=== PATIENT | male | born 1960 | race Caucasian/White ===

== ENCOUNTER 2017-09-15 14:44 | Emergency (ER) | payer OTHER ==
[2017-09-15 16:16] VITALS: BP 176/122
--- NOTE | 2017-09-15 16:54 | UC ---
Lower Extremity/Ankle HPI - HPI Summary HPI Summary: Pt presents with left leg swelling and redness that began yesterday. He tells me that he has a history of b/l leg swelling and uses daily compression stockings. Yesterday he took off his left stocking and forgot to put it back on. As the day went on, he noticed his left leg start to swell so he put the stocking on. Woke up this morning with increased swelling and redness of his left leg. He has been elevating his leg as much as possible since yesterday. Denies recent travel, hx of blood clots, SOB, chest pain, or recent injury. No pain. - History of Current Complaint Chief Complaint: UCLowerExtremity Stated Complaint: LEG SWELLING Time Seen by Provider: 09/15/17 16:54 Hx Obtained From: Patient Onset/Duration: Gradual Onset Pain Intensity: 0 Aggravating Factor(s): Standing, Ambulation Alleviating Factor(s): Elevation Able to Bear Weight: Yes - Allergies/Home Medications Allergies/Adverse Reactions: Allergies Allergy/AdvReac Type Severity Reaction Status Date / Time Sulfa (Sulfonamide Allergy Rash Verified 09/15/17 16:05 Antibiotics) Home Medications: Home Medications Ibuprofen TAB* [Advil TAB*] 800 mg PO Q6H PRN 09/15/17 [History Confirmed ] PMH/Surg Hx/FS Hx/Imm Hx Previously Healthy: Yes - Surgical History Surgical History: Yes Surgery Procedure, Year, and Place: sinus surgery 2005 - Family History Known Family History: Positive: Cardiac Disease, Hypertension - Social History Occupation: Employed Full-time Lives: Alone Alcohol Use: Daily Alcohol Amount: 2-3 drink/ day Substance Use Type: None Smoking Status (MU): Never Smoked Tobacco Review of Systems Constitutional: Negative Skin: Other - Redness and edema to left leg Respiratory: Negative Cardiovascular: Negative Gastrointestinal: Negative Motor: Negative Neurovascular: Negative Musculoskeletal: Negative Neurological: Negative Psychological: Negative All Other Systems Reviewed And Are Negative: Yes Physical Exam Triage Information Reviewed: Yes Appearance: Well-Appearing, No Pain Distress, Well-Nourished Vital Signs: Initial Vital Signs Temp 99.1 F 09/15/17 16:06 Pulse 98 09/15/17 16:06 Resp 14 09/15/17 16:06 BP 176/122 09/15/17 16:06 Pulse Ox 100 09/15/17 16:06 Vital Signs Reviewed: Yes Neck: Positive: Supple, Nontender, No Lymphadenopathy Respiratory: Positive: Lungs clear, Normal breath sounds, No respiratory distress, No accessory muscle use Cardiovascular: Positive: RRR, No Murmur, Pulses Normal - Left popliteal, TP, and DP., Brisk Capillary Refill - Left foot and toes Musculoskeletal: Positive: Strength Intact - Left LE, ROM Intact - Left LE, Other: - Negative Fidel's sign Left. No calf tenderness. Neurological: Positive: Alert, Other: - Sensations intact left LE. Psychological: Positive: Age Appropriate Behavior Skin: Positive: Other - 2+ edema left leg. Mild erythema extending from left patella down to toes. No skin breakdown, ulcerations, drainage, or masses/ nodules appreciated. Lower Extremity Course/Dx - Course Course Of Treatment: Left leg edema and erythema. I advised him to seek further evaluation in the ED for potential DVT. BP was 155/94 on manual recheck. - Differential Dx/Diagnosis Provider Diagnoses: Left leg edema. Left leg erythema Discharge - Discharge Plan Condition: Stable Disposition: HOME Patient Education Materials: Leg Edema (ED) Referrals: No Primary Care Phys,NOPCP [Primary Care Provider] - Additional Instructions: Your blood pressure was high at todays visit. Please see your primary provider within 4 weeks for recheck and re-evaluation. Please go to the [facility] ED for further evaluation of your left leg swelling.
== END 2017-09-15 17:15 | disposition home or self-care (01) ==
LOC: UCEAST 14:44
DX: R60.0 Localized edema (principal); L53.9 Erythematous condition, unspecified; Z88.2 Allergy status to sulfonamides
CPT/HCPCS: 99202; G0463

== ENCOUNTER 2017-09-16 09:01 | Emergency (ER) | payer OTHER ==
[2017-09-16 09:22] VITALS: BP 170/114
--- NOTE | 2017-09-16 10:09 | UC ---
Lower Extremity/Ankle HPI - HPI Summary HPI Summary: Pt presents with left lower leg pain and swelling. I saw pt yesterday for this same issue and I suspected he had a DVT - at that time I told him that we did not have ultrasound available and that he should seek further evaluation at the ER. He did not go to the ER and wanted to return this morning when Urgent Care did have ultrasound available. He kept his leg elevated all last night and took one aspirin. Still with swelling and pain. Leg appears less red today than yesterday. Denies fever, chills, SOB, chest pain, abdominal pain, n/v/d/c, headache, dizziness. - History of Current Complaint Chief Complaint: UCLowerExtremity Stated Complaint: RECHECK OF SWOLLEN LEG Time Seen by Provider: 09/16/17 09:59 Hx Obtained From: Patient Onset/Duration: Gradual Onset Severity Currently: None Pain Intensity: 0 Aggravating Factor(s): Standing, Ambulation Alleviating Factor(s): Rest, Elevation Able to Bear Weight: Yes - Allergies/Home Medications Allergies/Adverse Reactions: Allergies Allergy/AdvReac Type Severity Reaction Status Date / Time Sulfa (Sulfonamide Allergy Rash Verified 09/16/17 09:22 Antibiotics) PMH/Surg Hx/FS Hx/Imm Hx Previously Healthy: Yes - Surgical History Surgical History: Yes Surgery Procedure, Year, and Place: sinus surgery 2005 - Family History Known Family History: Positive: Cardiac Disease, Hypertension - Social History Occupation: Employed Full-time Lives: With Family Alcohol Use: Daily Alcohol Amount: 2-3 drink/ day Substance Use Type: None Smoking Status (MU): Never Smoked Tobacco - Immunization History Most Recent Tetanus Shot: unknown Review of Systems Constitutional: Negative Skin: Other - Redness and swelling to left leg Respiratory: Negative Cardiovascular: Negative Gastrointestinal: Negative Musculoskeletal: Negative Neurological: Negative Psychological: Negative All Other Systems Reviewed And Are Negative: Yes Physical Exam Triage Information Reviewed: Yes Appearance: Well-Appearing, No Pain Distress, Well-Nourished Vital Signs: Initial Vital Signs Temp 97.1 F 09/16/17 09:17 Pulse 107 09/16/17 09:17 Resp 20 09/16/17 09:17 BP 170/114 09/16/17 09:17 Pulse Ox 100 09/16/17 09:17 Vital Signs Reviewed: Yes Neck: Positive: Supple, Nontender, No Lymphadenopathy Respiratory: Positive: Lungs clear, Normal breath sounds, No respiratory distress, No accessory muscle use Cardiovascular: Positive: RRR, No Murmur, Brisk Capillary Refill - Left LE, Distal Pulses Weak - Left DP and TP Musculoskeletal: Positive: Strength Intact - Left LE, ROM Intact - Left LE, Edema @ - Left lower leg 3+ Neurological: Positive: Alert, Other: - Sensations intact left LE Psychological: Positive: Age Appropriate Behavior Skin: Positive: Other - Left lower leg 3+ edema. Diffuse erythema from distal thigh through foot. No skin breakdown, drainage, or palpable mass/nodule. Lower Extremity Course/Dx - Course Course Of Treatment: FINDINGS: There is occlusive deep venous thrombosis throughout the left lower extremity. involving the greater saphenous, common femoral, femoral, popliteal, peroneal, posterior. tibial veins. In addition there is occlusive thrombus within the common and external iliac. veins. The inferior vena cava appears patent. Pt was advised to go to the [facility] ED for further evaluation. He declined ambulance and elected to go by private vehicle. - Differential Dx/Diagnosis Provider Diagnoses: DVT left leg Discharge - Discharge Plan Condition: Stable Disposition: OTHER Discharge Disposition Comment: To [facility] by private car Patient Education Materials: Deep Vein Thrombosis (ED) Referrals: No Primary Care Phys,NOPCP [Primary Care Provider] - Additional Instructions: Please go to [facility] ED immediately. If you develop any shortness of breath or chest pain - please chute puller and call 911. Your blood pressure was high at todays visit. Please see your primary provider within 4 weeks for recheck and re-evaluation.
--- NOTE | 2017-09-16 10:40 | RAD ---
INDICATION: Left lower cavity swelling. COMPARISON: There are no prior studies available for comparison. TECHNIQUE: Multiple real-time, color flow and Doppler tracings of the left lower extremity were obtained. FINDINGS: There is occlusive deep venous thrombosis throughout the left lower extremity involving the greater saphenous, common femoral, femoral, popliteal, peroneal, posterior tibial veins. In addition there is occlusive thrombus within the common and external iliac veins. The inferior vena cava appears patent. The results of this exam were discussed with the referring clinician. IMPRESSION: EXTENSIVE OCCLUSIVE DEEP VENOUS THROMBOSIS THROUGHOUT THE LEFT LOWER EXTREMITY AND PELVIC VEINS ON THE LEFT SIDE.
== END 2017-09-16 10:40 ==
LOC: UCEAST 09:01
DX: I82.412 Acute embolism and thrombosis of left femoral vein (principal); I82.432 Acute embolism and thrombosis of left popliteal vein; I82.442 Acute embolism and thrombosis of left tibial vein; Z88.2 Allergy status to sulfonamides
CPT/HCPCS: 99212; G0463

== ENCOUNTER 2017-09-16 10:58 | Emergency (ER) | payer OTHER ==
--- NOTE | 2017-09-16 11:30 | ED ---
Lower Extremity - HPI Summary HPI Summary: 57 male presents to ED, sent over by urgent care, once diagnosed with DVT in left lower extremity. Patient states it has been red, warm, and swollen for the past few days and had it diagnosed on ultrasound prior to arrival at , due to extensiveness of DVT and need of treatment sent here. Denies any significant pain currently. Only when walking it causes him some pain. Denies any PMHx. No medications. No anticoagulants. Father had history of DVT. No chest pain or trouble breathing. No other complaints. No known trauma, injury or cause for DVT. No recent surgery, prolonged bed rest or recent travel. No cigarette use. Denies numbness/tingling, - History of Current Complaint Chief Complaint: EDExtremityLower Stated Complaint: POSSIBLE BLOOD CLOT LT LEG-CC TRANSFER Time Seen by Provider: 09/16/17 11:19 Hx Obtained From: Patient Mechanism Of Injury: Unknown Onset of Pain: Days Onset/Duration: Worse Since Severity Currently: None Pain Intensity: 0 Pain Scale Used: 0-10 Numeric Timing: Constant Location: Is Discrete @ - left lower extremity, calf Character Of Pain: Dull Associated Signs And Symptoms: Positive: Swelling, Redness Aggravating Factor(s): Ambulation Alleviating Factor(s): Rest, Nothing Able to Bear Weight: Yes Legs: 1 - red, warm swollen a/p - Allergies/Home Medications Allergies/Adverse Reactions: Allergies Allergy/AdvReac Type Severity Reaction Status Date / Time Sulfa (Sulfonamide Allergy Rash Verified 09/16/17 09:22 Antibiotics) PMH/Surg Hx/FS Hx/Imm Hx Endocrine/Hematology History: Denies: Hx Anticoagulant Therapy, Hx Diabetes Cardiovascular History: Denies: Hx Hypertension Respiratory History: Denies: Hx Asthma Musculoskeletal History: Reports: Other Musculoskeletal History - cervical stenosis - Surgical History Surgery Procedure, Year, and Place: sinus surgery 2005 - Immunization History Immunizations Up to Date: Yes Infectious Disease History: No Infectious Disease History: Denies: Traveled Outside the [place] in Last 30 Days - Family History Known Family History: Positive: Cardiac Disease, Hypertension - Social History Alcohol Use: Daily Alcohol Amount: 2-3 drink/ day Substance Use Type: Reports: None Smoking Status (MU): Never Smoked Tobacco Review of Systems Constitutional: Negative Cardiovascular: Negative Respiratory: Negative Gastrointestinal: Negative Positive: Arthralgia, Myalgia, Edema - left calf Positive: Other - redness left lower extremity Neurological: Negative All Other Systems Reviewed And Are Negative: Yes Physical Exam Triage Information Reviewed: Yes Vital Signs On Initial Exam: Initial Vitals Temp Pulse Resp BP Pulse Ox 98.2 F 105 18 157/109 97 09/16/17 11:00 09/16/17 11:00 09/16/17 11:00 09/16/17 11:00 09/16/17 11:00 Vital Signs Reviewed: Yes Appearance: Positive: Well-Appearing, No Pain Distress, Well-Nourished Skin: Positive: Warm, Skin Color Reflects Adequate Perfusion, Dry, Erythema @ - left lower extremity, knee and down. Negative: Cold, Numb, Cyanosis @ Head/Face: Positive: Temporal Artery Tenderness Eyes: Positive: Conjunctiva Clear ENT: Positive: Pharynx normal Neck: Positive: Supple, Nontender Respiratory/Lung Sounds: Positive: Clear to Auscultation, Breath Sounds Present. Negative: Rales, Rhonchi, Wheezes Cardiovascular: Positive: Normal, RRR, Pulses are Symmetrical in both Upper and Lower Extremities - 2+ pedal. Negative: Murmur, Rub Abdomen Description: Positive: Nontender, Soft Bowel Sounds: Positive: Present Musculoskeletal: Positive: Normal, Strength/ROM Intact, Pain @ - left lower extremity with movement, Edema Left - warm to touch, 41cm left, 38cm right. Negative: Limited @, Interruption @ Neurological: Positive: Normal, Sensory/Motor Intact, Alert, Oriented to Person Place, Time, CN Intact II-III, Reflexes Intact, NV Bundle Intact Distally, Normal Gait - with some pain to left lower extremity however is able Diagnostics - Vital Signs Vital Signs Temp Pulse Resp BP Pulse Ox 09/16/17 11:00 98.2 F 105 18 157/109 97 - Laboratory Result Diagrams: 09/16/17 13:40 09/16/17 13:40 Lab Statement: Any lab studies that have been ordered have been reviewed, and results considered in the medical decision making process. Lower Extremity Course/Dx - Course Course Of Treatment: ultrasound already obtained at showed:EXTENSIVE OCCLUSIVE DEEP VENOUS THROMBOSIS THROUGHOUT THE LEFT LOWER. EXTREMITY AND PELVIC VEINS ON THE LEFT SIDE. Due to extensivness spoke with Dr Valerio who stated start on lovenox and have follow up appointment with vasular surgeon. Labs obtained and showed elevated RBC, and thrombocytopenia. INR of 1.10. Slightly evelated BUN/Cr and alk phos. Spoke with Dr Valerio again about lab results who stated keep treatment plan of lovenox the same and have him follow up with him on Friday09/23/17 at [place] office. follow up with PCP on HTN evaluation and academic records specialist/blood work. Spoke with vascular surgery in [place] Dr [place] office at 2:00pm who stated patient can be seen 09/25/17 at 2:15pm. All files and images will be faxed/sent over to office as requested. Ok to discharge home - Diagnoses Differential Diagnosis/HQI/PQRI: Positive: DVT, Other - thrombocytopenia Provider Diagnoses: DVT (deep venous thrombosis), Thrombocytopenia - Physician Notifications Discussed Care Of Patient With: vascular surgery cny, Dr Valerio Time Discussed With Above Provider: 13:25 - and at 3:00pm Discharge - Discharge Plan Condition: Stable Disposition: HOME Prescriptions: Enoxaparin(*) [Lovenox(*)] 100 mg SUBCUT Q12HR #20 syringe Patient Education Materials: Enoxaparin (By injection), Deep Vein Thrombosis ( ED), Safe Use of Anticoagulants (ED) Referrals: [facility] [Outside] Jhon BALBUENA,Jhonathan Raza [Medical Doctor] - Liang Valerio MD [Medical Doctor] - Additional Instructions: Please take prescribed medication as directed for the next 10 days. Follow up with Dr Ferreira on September 25 at 2:15pm. Address and phone number above. You also have an appointment, you will get a phone call for, for close follow up on Saturday 09/[address] [place] [address] Valerio, tire repair mechanic. Do not take blood thinning/anticoagulant pain reliever medication such as Ibuprofen/Aspirin/Naproxen (also known as motrin, advil, aleve). Tylenol is safe to take for pain. Refrain from long periods of sitting and remember your risk for bleeding is increased while taking blood thinner. Any trauma or known injury please be evaluated for bleeding. Any new or worsening symptoms (chest pain, difficulty breathing, increased pain/ swelling) please seek medical attention promptly. Please follow up with PCP about elevated blood pressure within 2 weeks.
[2017-09-16] MEDS ORDERED: fentaNYL* 50 MCG/ML 2 ML VIAL (100 MCG VIAL) IV SLOW PU ONE (12:09)
[2017-09-16] MEDS ORDERED: Enoxaparin(*) 100 MG/ML SYR SUBCUT ONE (13:29)
[2017-09-16 13:52] LABS: Hematocrit 51 % (42-52); Hemoglobin 17.8 g/dl (14.0-18.0); Mean Corpuscular HGB Conc 35 g/dl (31-36); Mean Corpuscular Hemoglobin 31 pg (27-31); Mean Corpuscular Volume 90 fL (80-94); Mean Platelet Volume 9 um3 (7.4-10.4); Platelet Count 86 10^3/ul (150-450); Red Blood Count 5.69 10^6/ul (4.0-5.4); Red Cell Distribution Width 16 % (10.5-15); White Blood Count 10.5 10^3/ul (3.5-10.8)
[2017-09-16 14:00] LABS: INR 1.1 (0.77-1.02)
[2017-09-16 14:02] LABS: EGFR Non-African American 79.1 (>60)
[2017-09-16 14:22] LABS: ABS Basophils 0.1 10^3/ul (0-0.2); ABS Eosinophils 0.1 10^3/ul (0-0.6); ABS Lymphocytes 1.6 10^3/ul (1.0-4.8); ABS Monocytes 0.9 10^3/ul (0-0.8); ABS Neutrophils 7.8 10^3/ul (1.5-7.7); ABS Nucleated RBC 0 10^3/ul; Eosinophil % 1.4 % (0-6); Lymphocyte % 15.1 % (25-47); Nucleated Red Blood Cells % 0.3
[2017-09-16 15:22] VITALS: BP 132/84
== END 2017-09-16 15:20 | disposition home or self-care (01) ==
LOC: ED 10:58
DX: I82.4Z2 Acute embolism and thrombosis of unspecified deep veins of left distal lower extremity (principal); D69.6 Thrombocytopenia, unspecified; Z88.2 Allergy status to sulfonamides
CPT/HCPCS: 36415; 80053; 85025; 85060; 85610; 85730; 86038; 86147; 96372; 99282; J1650

== ENCOUNTER 2017-10-20 19:21 | Emergency (ER) | payer OTHER ==
[2017-10-20 19:34] VITALS: BP 132/94
--- NOTE | 2017-10-20 19:45 | UC ---
Lower Extremity/Ankle HPI - HPI Summary HPI Summary: 57 y/o male presents to the urgent care c/o blood blister on the dorsal side of his left foot for the past week. Pt reports he has Hx of DVT and recently has Thrombolysis of his left great Saphenous, an left iliac veins about 3 weeks ago at [facility]. Pt is now transitioning to Xarelto PO. Pain at touch is 2/10. Pt states he is feeling better after surgery. He has mild bruising over left toes # 2 and #3 due to the surgery. Pt denies numbness and tingling sensation over the left foot, calf pain, SOB, chest pain, abdominal pain, N/V/D. - History of Current Complaint Hx Obtained From: Patient Onset/Duration: Gradual Onset, Lasting Weeks - 1 week, Still Present, Worse Since - yesterday Severity Initially: Mild Severity Currently: Mild Pain Intensity: 2 - at touch Pain Scale Used: 0-10 Numeric Aggravating Factor(s): Ambulation Alleviating Factor(s): Rest, Elevation Able to Bear Weight: Yes - Risk Factors Gout Risk Factors: Negative DVT Risk Factors: Negative Septic Arthritis Risk Factor: Negative <Kerry Quiñones - Last Filed: 10/20/17 20:29> <Lisette Peters - Last Filed: 10/20/17 20:50> - History of Current Complaint Chief Complaint: UCLowerExtremity Stated Complaint: FOOT COMPLAINT Time Seen by Provider: 10/20/17 19:44 - Allergies/Home Medications Allergies/Adverse Reactions: Allergies Allergy/AdvReac Type Severity Reaction Status Date / Time Sulfa (Sulfonamide Allergy Rash Verified 10/20/17 19:34 Antibiotics) Home Medications: Home Medications Acetaminophen [Acetaminophen Extra Strength] 500 mg PO Q6H 10/20/17 [History Confirmed 10/20/17] Aspirin Low Dose CHEW TAB* [Aspirin Low Dose TAB*] 81 mg PO DAILY 10/20/17 [ History Confirmed 10/20/17] Lisinopril TAB* [Prinivil TAB 10 MG*] 10 mg PO DAILY 10/20/17 [History Confirmed 10/20/17] Metoprolol Venegas/Hydrochlorothiaz [Metoprolol ER-Hctz 100-12.5 mg] 1 tab PO DAILY 10/20/17 [History Confirmed 10/20/17] Rivaroxaban TAB(*) [Xarelto 15 mg(*)] 15 mg PO DAILY 10/20/17 [History Confirmed 10/20/17] PMH/Surg Hx/FS Hx/Imm Hx Previously Healthy: Yes Cardiovascular History: Atrial Fibrillation Other Cardiovascular History: DVT Other History Of: Negative For: Anticoagulant Therapy - Surgical History Surgical History: Yes Surgery Procedure, Year, and Place: sinus surgery 2005 - Family History Known Family History: Positive: Cardiac Disease, Hypertension - Social History Occupation: Employed Full-time Lives: With Family Alcohol Use: Daily Alcohol Amount: 1 /day Substance Use Type: None Smoking Status (MU): Never Smoked Tobacco - Immunization History Most Recent Tetanus Shot: unknown <Kerry Quiñones - Last Filed: 10/20/17 20:29> Review of Systems Constitutional: Negative Skin: Other - Blood blister on left foot Eyes: Negative ENT: Negative Respiratory: Negative Cardiovascular: Negative Gastrointestinal: Negative Genitourinary: Negative Motor: Negative Neurovascular: Negative Musculoskeletal: Negative Neurological: Negative Psychological: Negative Is Patient Immunocompromised?: No All Other Systems Reviewed And Are Negative: Yes <Kerry Quiñones - Last Filed: 10/20/17 20:29> Physical Exam - Summary Physical Exam Summary: Vital Signs Reviewed: Yes General: well developed, well nourished male sitting in the examining table w/o any apparent distress Eye Exam: Normal Eyes: Positive: Conjunctiva Clear - PERRLA, EOMI, fundi grossly normal ENT: Positive: Normal ENT inspection, Hearing grossly normal, Pharynx normal, TMs normal Neck: Positive: Supple, Nontender, No Lymphadenopathy Respiratory: Positive: Chest non-tender, Lungs clear, Normal breath sounds, No respiratory distress Cardiovascular: Positive: RRR, No Murmur, Pulses Normal, Brisk Capillary Refill Abdomen Description: Positive: Nontender, No Organomegaly, Soft. Negative: CVA Tenderness (R), CVA Tenderness (L) Bowel Sounds: Positive: Present Musculoskeletal: Positive: Strength Intact, ROM Intact, No Edema Neurological: Positive: Alert, Muscle Tone Normal Psychological Exam: Normal Skin: Positive: rashes - Positive intact serosu blister at the base of left #2 and #3 toes w/o any surrounding erythema or swelling, non tender to palpation, about 2.0cm X 1.5cm in size. Triage Information Reviewed: Yes Vital Signs: Initial Vital Signs Temp 97.2 F 10/20/17 19:30 Pulse 83 10/20/17 19:30 Resp 16 10/20/17 19:30 BP 132/94 10/20/17 19:30 Pulse Ox 100 10/20/17 19:30 <Kerry Quiñones - Last Filed: 10/20/17 20:29> Vital Signs: Initial Vital Signs Temp 97.2 F 10/20/17 19:30 Pulse 83 10/20/17 19:30 Resp 16 10/20/17 19:30 BP 132/94 10/20/17 19:30 Pulse Ox 100 10/20/17 19:30 <Lisette Peters - Last Filed: 10/20/17 20:50> Lower Extremity Course/Dx - Course Course Of Treatment: 57 y/o male presents to the urgent care c/o blood blister on the dorsal side of his left foot for the past week. Pt reports he has Hx of DVT and recently has Thrombolysis of his left great Saphenous, an left iliac veins about 3 weeks ago at [facility]. Pt is now transitioning to Xarelto PO. Pain at touch is 2/10. Pt states he is feeling better after surgery. He has mild bruising over left toes #2 and #3 due to the surgery. Pt denies numbness and tingling sensation over the left foot, calf pain, SOB, chest pain, abdominal pain, N/V/D. Hx obtained. Pt w/ a serosu blister on the dorsal side of left foot at the base of Toes #2 and #3 about 3.0cmx1.5cm in size, non tender to palaption on examination. I&D of blister:The procedure was explained and consent obtained. [place] protocol performed. Blister and sorrounding skin cleared w/ iodine swabs 3X. foot place in a dependent position and 30G needle was used to aspirate serous liquid until blister completely drained.Pt tolerated well procedure. Bacitracin topical ointment applied and wound covered with non-adherent sterile dressing. PT Advised to return to the urgent care or PCP if he developed any signs of infection. Pt's BP is elevated today advised to decrease salt in diet, monitor BP and f/u with PCP for further management. Pt understood and agreed with D/C instructions. Left the clinic ambulating A&OX3. - Differential Dx/Diagnosis Differential Diagnosis/HQI/PQRI: Cellulitis, Infection, Other - serous blister, abscess Provider Diagnoses: 1- Aspiration and Drainage of serous blister in left dorsal side of left foot. 2- Elevated BP w/o Hx of HTN <Kerry Quiñones - Last Filed: 10/20/17 20:29> Discharge <Kerry Quiñones - Last Filed: 10/20/17 20:29> <Lisette Peters - Last Filed: 10/20/17 20:50> - Discharge Plan Condition: Stable Disposition: HOME Prescriptions: Bacitracin OINTMENT* 1 applic TOPICAL TID #1 tube Patient Education Materials: Low-Sodium Diet (ED), Blister (ED) Referrals: Angel Steven MD [Primary Care Provider] - 3 Days Additional Instructions: 1-Please apply Bacitracin topical oint as directed. 2- If you develop redness or swelling and fever please f/u w/ your PCP of return to the urgent care for PO antibiotics develops please go to the ER immediately. 3-Avoid standing for long periods of time or flexing your foot, keep it elevated and keep wound clean and dry. 4-Please F/u with your Profile Grinder Technician for recheck on your recent surgery. 5-Your BP is elevated today. please decrease salt in your diet, monitor BP and if it continues to be elevated please f/u with your PCP for further management Attestation Statement User Type: Provider - I was available for consult. This patient was seen by the advanced practice provider. The patient was not presented to, seen by, or examined by me.-Renny <Lisette Peters - Last Filed: 10/20/17 20:50>
== END 2017-10-20 20:33 | disposition home or self-care (01) ==
LOC: UCEAST 19:21
DX: S90.822A Blister (nonthermal), left foot, initial encounter (principal); X58.XXXA Exposure to other specified factors, initial encounter; Y93.9 Activity, unspecified; Y92.9 Unspecified place or not applicable; R03.0 Elevated blood-pressure reading, without diagnosis of hypertension; Z86.718 Personal history of other venous thrombosis and embolism; I48.91 Unspecified atrial fibrillation; Z79.01 Long term (current) use of anticoagulants; Z79.82 Long term (current) use of aspirin; Z88.2 Allergy status to sulfonamides
CPT/HCPCS: 10160; 99212; G0463

== ENCOUNTER 2018-10-13 14:28 | Emergency (ER) | payer OTHER ==
[2018-10-13 14:44] VITALS: BP 112/72
--- NOTE | 2018-10-13 14:50 | UC ---
Throat Pain/[place] HPI - HPI Summary HPI Summary: 58 yo male presents with sinus congestion and left ear pain. His sinus symptoms have been going on for about 1.5 weeks and his ear pain for the last 2-3 days. He tells me that he has a history of chronic sinus issues and had surgery many years ago that resulted in him having dulled nerves in his sinuses - thus does not feel pressure/pain. He has been taking tylenol OTC with no relief. Denies fever, chills, sore throat, cough. - History of Current Complaint Chief Complaint: UCGeneralIllness Stated Complaint: URI Time Seen by Provider: 10/13/18 14:50 Hx Obtained From: Patient Onset/Duration: Gradual Onset Pain Intensity: 0 - Allergies/Home Medications Allergies/Adverse Reactions: Allergies Allergy/AdvReac Type Severity Reaction Status Date / Time Sulfa (Sulfonamide Allergy Hives Verified 10/13/18 14:44 Antibiotics) PMH/Surg Hx/FS Hx/Imm Hx - Additional Past Medical History Additional PMH: DVT Cardiovascular History: Hypertension Other History Of: Negative For: Anticoagulant Therapy - Surgical History Surgical History: Yes Surgery Procedure, Year, and Place: sinus surgery 2005 - Family History Known Family History: Positive: Cardiac Disease, Hypertension - Social History Lives: With Family Alcohol Use: None Alcohol Amount: 1 /day Substance Use Type: None Smoking Status (MU): Never Smoked Tobacco - Immunization History Most Recent Tetanus Shot: unknown Review of Systems All Other Systems Reviewed And Are Negative: Yes Constitutional: Positive: Negative Skin: Positive: Negative Eyes: Positive: Negative ENT: Positive: Ear Ache, Nasal Discharge, Sinus Congestion Respiratory: Positive: Negative Cardiovascular: Positive: Negative Gastrointestinal: Positive: Negative Neurovascular: Positive: Negative Neurological: Positive: Negative Psychological: Positive: Negative Physical Exam - Summary Physical Exam Summary: GENERAL: NAD. WDWN. No pain distress. SKIN: No rashes, sores, lesions, or open wounds. HEENT: Head: AT/NC Eyes: EOM intact. Conjunctiva clear without inflammation or discharge. Ears: Hearing grossly normal. TMs intact, no bulging, erythema, or edema. Nose: Nasal mucosa moderately swollen and erythematous with yellow/ clear discharge. NTTP maxillary and frontal sinus. Positive post nasal drip Throat: Posterior oropharynx without exudates, erythema, or tonsillar enlargement. Uvula midline. NECK: Supple. Nontender. No lymphadenopathy. CHEST: CTAB. No r/r/w. No accessory muscle use. Breathing comfortably and in no distress. CV: RRR. Without m/r/g. Pulses intact. NEURO: Alert. PSYCH: Age appropriate behavior. Triage Information Reviewed: Yes Vital Signs: Initial Vital Signs Temp 98.1 F 10/13/18 14:41 Pulse 66 10/13/18 14:41 Resp 16 10/13/18 14:41 BP 112/72 10/13/18 14:41 Pulse Ox 99 10/13/18 14:41 Vital Signs Reviewed: Yes Throat Pain/Nasal Course/Dx - Course Course Of Treatment: Sinusitis - Differential Dx/Diagnosis Provider Diagnosis: Sinusitis Discharge - Sign-Out/Discharge Documenting (check all that apply): Patient Departure All imaging exams completed and their final reports reviewed: No Studies - Discharge Plan Condition: Stable Disposition: HOME Prescriptions: Amoxicillin/Clavulanate TAB* [Augmentin TAB 875*] 875 mg PO BID #20 tab Patient Education Materials: Sinusitis (ED) Referrals: Angel Steven MD [Primary Care Provider] - Additional Instructions: If you develop a fever, shortness of breath, chest pain, new or worsening symptoms - please call your PCP or go to the ED. - Billing Disposition and Condition Condition: STABLE Disposition: Home
== END 2018-10-13 15:00 | disposition home or self-care (01) ==
LOC: UCEAST 14:28
DX: J32.9 Chronic sinusitis, unspecified (principal); Z88.2 Allergy status to sulfonamides; I10 Essential (primary) hypertension; I82.509 Chronic embolism and thrombosis of unspecified deep veins of unspecified lower extremity; Z79.01 Long term (current) use of anticoagulants
CPT/HCPCS: 99212; G0463